=== PATIENT | female | born 1970 | race Caucasian/White ===

== ENCOUNTER 2024-07-08 04:28 | Day surgery (SDC) | payer OTHER ==
[2024-07-07 10:02] VITALS: BMI 24.7
[2024-07-08] MEDS ORDERED: MIDAZOLAM HCL 2 MG/2 ML SINGLE DOSE VIAL ONE (08:30)
[2024-07-08 09:08] VITALS: TEMP 98.8
[2024-07-08 09:35] VITALS: PULSE 68; RESP 17
[2024-07-08 10:14] VITALS: BP 110/72
== END 2024-07-08 10:31 | disposition home or self-care (01) ==
LOC: JASU-ENDO 04:28
PROVIDERS: ATTEND Internal Medicine Gastroenterology
PROC: 0DJD8ZZ Inspection of Lower Intestinal Tract, Via Natural or Artificial Opening Endoscopic (ICD-10-PCS; principal; 2024-07-08 08:45)
DX: Z12.11 Encounter for screening for malignant neoplasm of colon (principal); K64.8 Other hemorrhoids